=== PATIENT | female | born 1980 | race Two or more races ===

== ENCOUNTER 2018-01-05 20:16 | Inpatient (IN) | payer OTHER ==
[2018-01-05 20:39] VITALS: BMI 31.2
[2018-01-05] MEDS ORDERED: MELATONIN 5 MG TABLETS PO PRN (22:00)
--- NOTE | 2018-01-05 22:27 | HP ---
COWS - Scale Resting Pulse: 4= VT > 121 Sweatin=Flushed/Facial Moisture Restless Observation: 5= Unable to Sit Still Pupil Size: 0= Normal to Room Light Bone or Joint Aches: 4=Acute Joint/Muscle Pain Runny Nose/ Eye Tearin= Nasal Congestion GI Upset > 30mins: 0= None Tremor Observation: 4= Gross Tremor/Twitching Yawning Observation: 0= None Anxiety or Irritability: 4=Extreme Anxiety Goose Flesh Skin: 0=Smooth Skin COWS Score: 24 CIWA Score - CIWA Score Nausea/Vomitin-No Nausea/No Vomiting Muscle Tremors: 4-Moderate,w/Arms Extend Anxiety: 5 Agitation: 5 Paroxysmal Sweats: 3 Orientation: 3-Disoriented Date>2 days Tacttile Disturbances: 0-None Auditory Disturbances: 0-None Visual Disturbances: 0-None Headache: 0-None Present CIWA-Ar Total Score: 20 Admission ROS BHS - HPI Chief Complaint: seeking detox w/ c/o of withdrawal sx's from polysubstnce dependence Allergies/Adverse Reactions: Allergies Allergy/AdvReac Type Severity Reaction Status Date / Time No Known Allergies Allergy Verified 01/05/18 22:23 History of Present Illness: 37 Y.O FEMALE WITH POLYSUBSTANCE DEPENDENCE HERE FOR DETOX FROM ALCOHOL, BENZO, HEROIN. CLIENT UTOX NEGATIVE FOR BENZO. STATES IS USING KLON[place]INS. SHE IS KNOWN TO PREVIOUS DETOX TXMENT BUT THIS IS HER FIRST ADMISSION HERE. REPORTS LAST DETOX TXMENT ABOUT 2 YEARS AGO. SELF REFERRED. REPORTS LONGEST CLEAN TIME 18 MONTHS. REPORTS HX/O SEIZURE R/T DRUG WITHDRAWAL, SI BY CUTTING WRIST BOTH ABOUT THREE YEARS AGO LAST ATTEMPTED/EPISODE. DENIES DRUG OVERDOSE, AVH. PMHX: DENIES PSYCH: PTSD, BIPOLAR, MDD, Exam Limitations: No Limitations - Ebola screening Have you traveled outside of the country in the last 21 days: No Have you had contact with anyone from an Ebola affected area: No Have you been sick,other than usual withdrawal symptoms: No - Review of Systems Constitutional: Chills, Loss of Appetite, Malaise, Night Sweats, Changes in sleep EENT: reports: Dental Problems (POOR DENTITION) Respiratory: reports: No Symptoms reported Cardiac: reports: No Symptoms Reported GI: reports: Poor Appetite : reports: No Symptoms Reported Musculoskeletal: reports: Back Pain (CHRONIC) Integumentary: reports: Other (ABRASIONS TO BLE) Neuro: reports: Seizure (LAST EPISODE 3 YEARS AGO R/T DRUG WITHDRAWAL) Endocrine: reports: No Symptoms Reported Hematology: reports: No Symptoms Reported Psychiatric: reports: Anxious, Depressed Other Systems: Reviewed and Negative Patient History - Patient Medical History Hx Anemia: No Hx Asthma: No Hx Chronic Obstructive Pulmonary Disease (COPD): No Hx Cancer: No Hx Cardiac Disorders: No Hx Congestive Heart Failure: No Hx Hypertension: No Hx Hypercholesterolemia: No Hx Pacemaker: No HX Cerebrovascular Accident: No Hx Seizures: Yes Hx Dementia: No Hx Diabetes: No Hx Gastrointestinal Disorders: No Hx Liver Disease: No Hx Genitourinary Disorders: No Hx Sexually Transmitted Disorders: No Hx Renal Disease (ESRD): No Hx Thyroid Disease: No Hx Human Immunodeficiency Virus (HIV): No Hx Hepatitis C: No Hx Depression: Yes Hx Suicide Attempt: Yes Hx Bipolar Disorder: Yes Hx Schizophrenia: No Other Medical History: PTSD, - Patient Surgical History Past Surgical History: Yes Hx Orthopedic Surgery: Yes (R FEMUR/HIP SX 2/2 NON MALIGNANT TUMOR) Anesthesia Reaction: No - PPD History Previous Implant?: Yes Documented Results: Negative w/o proof Implanted On Prior [facility] Admission?: No PPD to be Administered?: Yes - Reproductive History Patient is a Female of Child Bearing Age (11 -55 yrs old): Yes Last Menstrual Period: 12/11/17 LMP comment: REG Patient : No (NEG UHCG) - Smoking Cessation Smoking history: Never smoked Initiated information on smoking cessation: No - Substance & Tx. History Hx Alcohol Use: Yes Hx Substance Use: Yes Substance Use Type: Alcohol, Cocaine, Heroin Hx Substance Use Treatment: Yes ([facility]) - Substances Abused HEROIN Route: Injection Frequency: Daily Amount used: 15 BAGS Age of first use: 20 Date of Last Use: 01/05/18 LIQUOR/BEER Route: Oral Frequency: Daily Amount used: 1-PINT/2-24OZ Age of first use: 13 Date of Last Use: 01/05/18 KLONOPIN Route: Oral Frequency: Daily Amount used: 10 MG Age of first use: 29 Date of Last Use: 01/05/18 COCAINE Route: Smoking Frequency: 3-6 times per week Amount used: 1/2GM Age of first use: 20 Date of Last Use: 01/03/18 Family Disease History - Family Disease History Family Disease History: Other: Father (RECOVERING ADDICTS), Mother (RECOVERING ADDICTS), Brother (ADDICT), Sister (RECOVERING ADDICT) Admission Physical Exam [facility] - Vital Signs Vital Signs: Vital Signs - 24 hr 01/05/18 20:35 Temperature 98.9 F Pulse Rate 121 H Respiratory 20 Rate Blood Pressure 150/86 - Physical General Appearance: Yes: Disheveled, Moderate Distress, Tremorous, Sweating ( FLUSHING), Anxious HEENTM: Yes: EOMI, Normocephalic, Normal Voice, VIVIANA, Pharynx Normal, Other ( POOR DENTITION) Respiratory: Yes: Chest Non-Tender, Lungs Clear, Normal Breath Sounds, No Respiratory Distress, No Accessory Muscle Use Neck: Yes: No masses,lesions,Nodules, Supple, Trachea in good position Breast: Yes: Breast Exam Deferred Cardiology: Yes: Regular Rhythm, S1, S2, Tachycardia Abdominal: Yes: Non Tender, Soft, Protuberent Genitourinary: Yes: Other (NO C/O) Back: Yes: Normal Inspection Musculoskeletal: Yes: Gait Steady Extremities: Yes: Normal Range of Motion, Non-Tender, Tremors Neurological: Yes: Fully Oriented, Alert, Motor Strength 5/5, Other (TALKATIVE) Integumentary: Yes: Warm, Track Smith, Other (FLUSHING SOLIED DIRTY SKIN) Lymphatic: Yes: Within Normal Limits - Diagnostic (1) Alcohol dependence with uncomplicated withdrawal Current Visit: Yes Status: Acute (2) Opioid dependence with withdrawal Current Visit: Yes Status: Acute (3) Cocaine abuse, uncomplicated Current Visit: Yes Status: Chronic (4) Sedative, hypnotic or anxiolytic dependence with withdrawal, uncomplicated Current Visit: Yes Status: Acute (5) Substance induced mood disorder Current Visit: Yes Status: Suspected (6) Chronic back pain Current Visit: Yes Status: Chronic Qualifiers: Back pain laterality: unspecified (7) IVDU (intravenous drug user) Current Visit: Yes Status: Chronic Cleared for Admission [facility] - Detox or Rehab [facility] Level of Care: Medically Managed Detox Regimen/Protocol: Methadone/Valium Claeared for Rehab Admission: No [facility] Breath Alcohol Content Breath Alcohol Content: 0.052 Urine Pregancy Test - Result Urine Test Results: Negative- NO Line Present Urine Drug Screen - Results Drug Screen Negative: No Urine Drug Screen Results: DANA-Cocaine, OPI-Opiates, AMP-Amphetamines, OXY- Oxycodone
[2018-01-05] MEDS ORDERED: ACETAMINOPHEN 325 MG TABLET (FP) PO PRN (22:47)
[2018-01-05] MEDS ORDERED: LOPERAMIDE HCL 2 MG CAPSULE PO PRN (22:47)
[2018-01-05] MEDS ORDERED: guaiFENesin/D-METHORPHAN HB 10 ML UNIT-DOSE CUPS PO PRN (22:47)
[2018-01-05] MEDS ORDERED: MAG HYDROX/AL HYDROX/SIMETH 30 ML UNIT-DOSE CUP PO PRN (22:47)
[2018-01-05] MEDS ORDERED: MENTHOL/PHENOL 1 EACH UD MM PRN (22:47)
[2018-01-05] MEDS ORDERED: MAGNESIUM CITRATE 300 ML BOTTLE PO PRN (22:47)
[2018-01-05] MEDS ORDERED: IBUPROFEN 400 MG TABLET (FP) PO PRN (22:47)
[2018-01-05] MEDS ORDERED: P-EPHED 60MG/TRIPROLIDI 2.5MG TABLET PO PRN (22:47)
[2018-01-05] MEDS ORDERED: MAGNESIUM HYDROX 2400MG/30ML ORAL SUSPENSION 30 ML CUP PO PRN (22:47)
[2018-01-06] MEDS ORDERED: METHADONE HCL 10 MG TABLET (FOR DETOX USE ONLY) PO ONE ×3 (00:07→23:00)
[2018-01-06] MEDS ORDERED: diazePAM 5 MG TABLET PO ONE (00:07)
[2018-01-06] MEDS ORDERED: PNEUMOC 13-VAL CONJ-DIP CRM/PF 0.5 ML DISP.SYRIN IM ONE (01:00)
[2018-01-06 01:24] LABS: URINE APPEARANCE CLEAR; URINE BILIRUBIN NEGATIVE (<2.0 mg/dL); URINE COLOR STRAW; URINE GLUCOSE (UA) NEGATIVE (NEGATIVE); URINE KETONE NEGATIVE (NEGATIVE); URINE LEUK ESTERASE TRACE (NEGATIVE); URINE NITRITE NEGATIVE (NEGATIVE); URINE PROTEIN NEGATIVE (NEGATIVE); URINE UROBILINOGEN NEGATIVE mg/dL (0.2-1.0)
[2018-01-06 01:39] LABS: EPI CELLS RARE /HPF (FEW); URINE MUCUS RARE
[2018-01-06] MEDS: diazePAM 5 MG TABLET PO SCH ×3 (05:37→22:23)
[2018-01-06] MEDS: diazePAM 5 MG TABLET PO PRN ×4 (06:59→23:45)
[2018-01-06 10:07] LABS: HEMATOCRIT 31.7 % (32.4-45.2); HEMOGLOBIN 10.3 GM/dL (10.7-15.3); MCH 26.3 pg (25.7-33.7); MCHC 32.5 g/dl (32.0-36.0); MEAN CELL VOLUME 80.7 fl (80-96); MEAN PLT VOLUME 7.6 fl (7.5-11.1); PLATELET COUNT 381 K/MM3 (134-434); RBC 3.93 M/mm3 (3.60-5.2); RDW 15.6 % (11.6-15.6); WHITE BLOOD COUNT 8.1 K/mm3 (4.0-10.0)
[2018-01-06 10:19] LABS: CHLORIDE 104 mmol/L (98-107); POTASSIUM 4.2 mmol/L (3.5-5.1); SODIUM 139 mmol/L (136-145)
[2018-01-06] MEDS: PRENATAL VITAMINS W/ FOLIC ACID TABLET (FP) PO SCH (10:30)
[2018-01-06 10:36] LABS: ALBUMIN 3.2 g/dl (3.4-5.0); ALK PHOS 88 U/L (45-117); ANION GAP 9 MMOL/L (8-16); BILIRUBIN,TOTAL 0.3 mg/dL (0.2-1.0); BLOOD UREA NITROGEN 12 mg/dL (7-18); CALCIUM 9.4 mg/dL (8.5-10.1); CO2 26 mmol/L (21-32); CREATININE 0.6 mg/dL (0.55-1.02); GLUCOSE,RANDOM 91 mg/dL (74-106); SGOT/AST 20 U/L (15-37); SGPT/ALT 19 U/L (12-78); TOT PROT 7.2 g/dl (6.4-8.2)
--- NOTE | 2018-01-06 13:39 | PN ---
S CIWA - CIWA Score Nausea/Vomitin Muscle Tremors: 3 Anxiety: 2 Agitation: 2 Paroxysmal Sweats: 2 Orientation: 0-Oriented Tacttile Disturbances: 0-None Auditory Disturbances: 0-None Visual Disturbances: 1-Very Mild Sensitivity Headache: 2-Mild CIWA-Ar Total Score: 14 BHS COWS - Scale Resting Pulse: 1= [place] 81-100 Sweatin=Flushed/Facial Moisture Restless Observation: 1= Difficult to Sit Still Pupil Size: 1= Pupils >than Normal Bone or Joint Aches: 2= Severe Diffuse Aches Runny Nose/ Eye Tearin= Nasal Congestion GI Upset > 30mins: 2= Nausea/Diarrhea Tremor Observation of Outstretched Hands: 2= Slight Tremor Visible Yawning Observation: 0= None Anxiety or Irritability: 1=Feels Anxious/Irritable Goose Flesh Skin: 3=Piloerection COWS Score: 16 S Progress Note (SOAP) Subjective: Tremors, sweats, irritability and interrupted sleep Objective: 01/06/18 13:38 Vital Signs 01/06/18 01/06/18 01/06/18 06:00 07:12 09:45 Temperature 97.2 F L 98.2 F Pulse Rate 96 H 88 91 H Respiratory 20 20 18 Rate Blood Pressure 132/104 122/73 144/73 Laboratory Last Values WBC 8.1 K/mm3 (4.0-10.0) 01/06/18 08:00 RBC 3.93 M/mm3 (3.60-5.2) 01/06/18 08:00 Hgb 10.3 GM/dL (10.7-15.3) L 01/06/18 08:00 Hct 31.7 % (32.4-45.2) L 01/06/18 08:00 MCV 80.7 fl (80-96) 01/06/18 08:00 MCH 26.3 pg (25.7-33.7) 01/06/18 08:00 MCHC 32.5 g/dl (32.0-36.0) 01/06/18 08:00 RDW 15.6 % (11.6-15.6) 01/06/18 08:00 Plt Count 381 K/MM3 (134-434) 01/06/18 08:00 MPV 7.6 fl (7.5-11.1) 01/06/18 08:00 Sodium 139 mmol/L (136-145) 01/06/18 08:00 Potassium 4.2 mmol/L (3.5-5.1) 01/06/18 08:00 Chloride 104 mmol/L (98-107) 01/06/18 08:00 Carbon Dioxide 26 mmol/L (21-32) 01/06/18 08:00 Anion Gap 9 MMOL/L (8-16) 01/06/18 08:00 BUN 12 mg/dL (7-18) 01/06/18 08:00 Creatinine 0.6 mg/dL (0.55-1.02) 01/06/18 08:00 Creat Clearance w eGFR > 60 (>60) 01/06/18 08:00 Random Glucose 91 mg/dL (74-106) 01/06/18 08:00 Calcium 9.4 mg/dL (8.5-10.1) 01/06/18 08:00 Total Bilirubin 0.3 mg/dL (0.2-1.0) 01/06/18 08:00 AST 20 U/L (15-37) 01/06/18 08:00 ALT 19 U/L (12-78) 01/06/18 08:00 Alkaline Phosphatase 88 U/L (45-117) 01/06/18 08:00 Total Protein 7.2 g/dl (6.4-8.2) 01/06/18 08:00 Albumin 3.2 g/dl (3.4-5.0) L 01/06/18 08:00 Urine Color Straw 01/06/18 00:08 Urine Appearance Clear 01/06/18 00:08 Urine pH 6.0 (5.0-8.0) 01/06/18 00:08 Ur Specific [place] 1.009 (1.001-1.035) 01/06/18 00:08 Urine Protein Negative (NEGATIVE) 01/06/18 00:08 Urine Glucose (UA) Negative (NEGATIVE) 01/06/18 00:08 Urine Ketones Negative (NEGATIVE) 01/06/18 00:08 Urine Blood Negative (NEGATIVE) 01/06/18 00:08 Urine Nitrite Negative (NEGATIVE) 01/06/18 00:08 Urine Bilirubin Negative (<2.0 mg/dL) 01/06/18 00:08 Urine Urobilinogen Negative mg/dL (0.2-1.0) 01/06/18 00:08 Ur Leukocyte Esterase Trace (NEGATIVE) 01/06/18 00:08 Urine WBC (Auto) 6 /hpf (3-5) 01/06/18 00:08 Urine RBC (Auto) <1 /hpf (0-3) 01/06/18 00:08 Ur Epithelial Cells Rare /HPF (FEW) 01/06/18 00:08 Urine Mucus Rare 01/06/18 00:08 RPR Titer Nonreactive (NONREACTIVE) 01/06/18 08:00 Labs noted Assessment: 01/06/18 13:39 Withdrawal sx Plan: Continue detox
[2018-01-06] MEDS ORDERED: PNEUMOCOCCAL 23 VACCINE 0.5 ML VIAL IM ONE (14:13)
--- NOTE | 2018-01-06 17:26 | CONSULT ---
[facility] Psychiatric Consult - Data Date of interview: 01/06/18 Admission source: [facility] Identifying data: First admission to [facility] for this 37 y/o female seeking detox treatment on for alcohol,cocaine,heroin and benzodiazepine (clonazepam) dependence.Patient is ,a mother of one, domiciled and currently employed. Substance Abuse History: Discussed in this interview.Details in current [facility] reports as follows : Smoking history: Never smoked. Initiated information on smoking cessation: No. - Substance & Tx. History. Hx Alcohol Use: Yes. Hx Substance Use: Yes. Substance Use Type: Alcohol, Cocaine, Heroin. Hx Substance Use Treatment: Yes ([facility]). - Substances Abused. HEROIN. Route: Injection. Frequency: Daily. Amount used: 15 BAGS. Age of first use: 20. Date of Last Use: 01/05/18. LIQUOR/BEER. Route: Oral. Frequency: Daily. Amount used: 1-PINT/2-24OZ. Age of first use: 13. Date of Last Use: 01/05/18. KLONOPIN. Route: Oral. Frequency: Daily. Amount used : 10 MG. Age of first use: 29. Date of Last Use: 01/05/18. COCAINE. Route : Smoking. Frequency: 3-6 times per week. Amount used: 1/2GM. Age of first use: 20. Date of Last Use: 01/03/18 Medical History: History of withdrawal-related seizures,orthosurgery for non- malignant tumor of right femur + right hip.No reported allergies. Psychiatric History: Patient reports a history of one psychiatric hospitalization, two years ago, at [facility] for a suicide attempt (wrist- cutting).Diagnosed with Bipolar Disorder.Ms Ashby indicates that she used to be prescribed seroquel,valproate and prazosin.Dropped out of psychiatric OPD care for several months.Off psychotropic medications and no contact with mental health professionals. Physical/Sexual Abuse/Trauma History: Traumatized by the of to a heart attack five years ago. Additional Comment: Urine Drug Screen Results: DANA-Cocaine, OPI-Opiates, AMP- Amphetamines, OXY-Oxycodone.Noted. Mental Status Exam - Mental Status Exam Alert and Oriented to: Time, Place, Person Cognitive Function: Good Patient Appearance: Well Groomed Mood: Nervous, Withdrawn Affect: Mood Congruent, Constricted Patient Behavior: Fatigued, Cooperative Speech Pattern: Clear, Appropriate Voice Loudness: Normal Thought Process: Intact, Goal Oriented Thought Disorder: Not Present Hallucinations: Denies Suicidal Ideation: Denies Homicidal Ideation: Denies Insight/Judgement: Poor Sleep: Poorly, Difficulty falling asleep Appetite: Good Muscle strength/Tone: Normal Gait/Station: Normal Psychiatric Findings - Problem List ([place] 1, 2,3) (1) Alcohol dependence with uncomplicated withdrawal Current Visit: Yes Status: Acute (2) Opioid dependence with withdrawal Current Visit: Yes Status: Acute (3) Cocaine dependence Current Visit: Yes Status: Acute (4) Sedative, hypnotic or anxiolytic dependence with withdrawal, uncomplicated Current Visit: Yes Status: Acute (5) Substance induced mood disorder Current Visit: Yes Status: Acute (6) Insomnia Current Visit: Yes Status: Acute - Initial Treatment Plan Initial Treatment Plan: Psychoeducation.Sleep hygiene.Detoxification.Ambien 10 mg po hs prn.Patient is made aware of the risk of parasomnias.Agrees to this careplan.Ms Ashby plans to transition to rehabilitation treatment (inpatient setting).Psychiatric re-consultation will be sought,once detox completed, to assess need for mood stabilizers.Observation.
--- NOTE | 2018-01-06 19:05 | EKG ---
Test Reason : Blood Pressure : / mmHG Vent. Rate : 102 BPM Atrial Rate : 102 BPM P-R Int : 176 ms QRS Dur : 084 ms QT Int : 338 ms P-R-T Axes : 052 070 042 degrees QTc Int : 440 ms SINUS TACHYCARDIA OTHERWISE NORMAL ECG NO PREVIOUS ECGS AVAILABLE Confirmed by LELA AKBAR MD ([id number]) on 01/06/2018 7:05:03 PM Referred By: Rose Marie Walton Confirmed By:LELA AKBAR MD
[2018-01-06] MEDS ORDERED: TRIMETHOBENZAMIDE HCL 200MG/2ML INJ IM ONE (19:30)
[2018-01-06] MEDS ORDERED: THIAMINE HCL 100 MG TABLET (FP) PO SCH (22:00)
[2018-01-06] MEDS ORDERED: ZOLPIDEM TARTRATE 10 MG TABLET (PARK CARE ONLY) PO PRN (22:00)
[2018-01-07] MEDS: diazePAM 5 MG TABLET PO PRN ×2 (03:04→10:41)
[2018-01-07] MEDS: diazePAM 5 MG TABLET PO SCH (05:23)
[2018-01-07 06:15] VITALS: TEMP 97.9
[2018-01-07] MEDS ORDERED: METHADONE HCL 10 MG TABLET (FOR DETOX USE ONLY) PO SCH (10:00)
[2018-01-07] MEDS: PRENATAL VITAMINS W/ FOLIC ACID TABLET (FP) PO SCH (10:39)
[2018-01-07 11:22] VITALS: BP 138/56; PULSE 112
--- NOTE | 2018-01-07 15:57 | DS ---
[facility] Detox Discharge Summary Admission Date: 01/05/18 Discharge Date: 01/07/18 - History Present History: Alcohol Dependence, Cocaine Dependence, Opioid Dependence, Sedative Dependence Additional Comments: Admitted w/ acute withdrawal symptoms. Hx poly-substance use disorder. Pertinent Past History: Denies significant PMH. - Physical Exam Results Vital Signs: Vital Signs Temperature 97.9 F 01/07/18 10:00 Pulse Rate 112 H 01/07/18 10:00 Respiratory Rate 20 01/07/18 10:00 Blood Pressure 138/56 01/07/18 10:00 O2 Sat by Pulse Oximetry (%) Pertinent Admission Physical Exam Findings: Withdrawal symptoms admission. Laboratory Tests 01/06/18 01/06/18 01/06/18 00:08 08:00 08:00 WBC 8.1 RBC 3.93 Hgb 10.3 L Hct 31.7 L MCV 80.7 MCH 26.3 MCHC 32.5 RDW 15.6 Plt Count 381 MPV 7.6 Sodium 139 Potassium 4.2 Chloride 104 Carbon Dioxide 26 Anion Gap 9 BUN 12 Creatinine 0.6 Creat Clearance w eGFR > 60 Random Glucose 91 Calcium 9.4 Total Bilirubin 0.3 AST 20 ALT 19 Alkaline Phosphatase 88 Total Protein 7.2 Albumin 3.2 L Urine Color Straw Urine Appearance Clear Urine pH 6.0 Ur Specific [place] 1.009 Urine Protein Negative Urine Glucose (UA) Negative Urine Ketones Negative Urine Blood Negative Urine Nitrite Negative Urine Bilirubin Negative Urine Urobilinogen Negative Ur Leukocyte Esterase Trace Urine WBC (Auto) 6 Urine RBC (Auto) <1 Ur Epithelial Cells Rare Urine Mucus Rare RPR Titer 01/06/18 08:00 WBC RBC Hgb Hct MCV MCH MCHC RDW Plt Count MPV Sodium Potassium Chloride Carbon Dioxide Anion Gap BUN Creatinine Creat Clearance w eGFR Random Glucose Calcium Total Bilirubin AST ALT Alkaline Phosphatase Total Protein Albumin Urine Color Urine Appearance Urine pH Ur Specific [place] Urine Protein Urine Glucose (UA) Urine Ketones Urine Blood Urine Nitrite Urine Bilirubin Urine Urobilinogen Ur Leukocyte Esterase Urine WBC (Auto) Urine RBC (Auto) Ur Epithelial Cells Urine Mucus RPR Titer Nonreactive Labs reviewed. - Treatment Hospital Course: Detox Protocol Followed, Detoxed Safely, Discharged Condition Good (Alert and oriented upon discharge with steady gait. Patient refused to stay despite discussion to provide additional medications to assist w/ withdrawal symptoms. Patient verbalized an understanding of overdose risks and prevention. States will call 911, go to ER, or another facility if has a problem.) - Diagnosis (1) Alcohol dependence with uncomplicated withdrawal Status: Acute (2) Cocaine dependence Status: Chronic Qualifiers: Substance use status: in withdrawal Qualified Code(s): F14.23 - Cocaine dependence with withdrawal (3) Opioid dependence with withdrawal Status: Acute (4) Sedative, hypnotic or anxiolytic dependence with withdrawal, uncomplicated Status: Acute (5) Cocaine abuse, uncomplicated Status: Chronic (6) IVDU (intravenous drug user) Status: Chronic - AMA Did Patient Leave Against Medical Advice: Yes
[2018-01-08] MEDS ORDERED: diazePAM 5 MG TABLET PO SCH (10:00)
[2018-01-08] MEDS ORDERED: METHADONE HCL 5 MG TABLET (FOR DETOX USE ONLY) PO SCH (10:00)
[2018-01-10] MEDS ORDERED: METHADONE HCL 10 MG TABLET (FOR DETOX USE ONLY) PO SCH (10:00)
[2018-01-10] MEDS ORDERED: diazePAM 5 MG TABLET PO SCH (10:00)
[2018-01-11] MEDS ORDERED: METHADONE HCL 5 MG TABLET (FOR DETOX USE ONLY) PO SCH (06:00)
== END 2018-01-07 11:39 | disposition left against medical advice (07) | DRG 770 ==
LOC: YASAS 20:16 → Y6N 23:06
PROVIDERS: ADMIT Surgery; ATTEND Surgery
PROC: HZ2ZZZZ Detoxification Services for Substance Abuse Treatment (ICD-10-PCS; principal; 2018-01-05)
DX: F11.23 Opioid dependence with withdrawal (principal); F10.230 Alcohol dependence with withdrawal, uncomplicated; F13.230 Sedative, hypnotic or anxiolytic dependence with withdrawal, uncomplicated; F14.23 Cocaine dependence with withdrawal; F19.24 Other psychoactive substance dependence with psychoactive substance-induced mood disorder; F31.9 Bipolar disorder, unspecified; G47.00 Insomnia, unspecified; M54.9 Dorsalgia, unspecified; G89.29 Other chronic pain; Z86.69 Personal history of other diseases of the nervous system and sense organs
CPT/HCPCS: 36415; 80053; 81003; 81015; 85027; 86593; 93005; 93010